=== PATIENT | female | born 1965 | race Caucasian/White ===

== ENCOUNTER 2016-12-08 16:55 | Emergency (ER) | payer MEDICAID, OTHER ==
[2016-12-08 17:14] VITALS: BP 122/69; PULSE 77; RESP 14; TEMP 97.9; O2SAT 93
--- NOTE | 2016-12-08 17:42 | EDPHY ---
H & P Time Seen by Provider: 12/08/16 16:59 HPI/ROS: CHIEF COMPLAINT: right index finger pain HISTORY OF PRESENT ILLNESS: 51-year-old female who is [id number] presents emergency department complaining of right distal index finger pain. Patient was getting out of shower and reports he jammed it on the towel rack. This happened last night. Patient reports pain and swelling, she denies previous injury to this finger, no other complaints. Past Medical/Surgical History: CHIEF COMPLAINT: [] HISTORY OF PRESENT ILLNESS: [ ] Physical Exam: GEN: Awake, alert, oriented, no acute distress RESP: nl resp effort MSK: right index finger held in flexion at DIP joint, mild swelling and ecchymosis, tenderness to palpation at the IP joint, cap refill less than 2 seconds, sensation intact to light touch SKIN: No break in skin Constitutional: Initial Vital Signs Temperature (C) 36.6 C 12/08/16 17:13 Heart Rate 77 12/08/16 17:13 Respiratory Rate 14 12/08/16 17:13 Blood Pressure 122/69 H 12/08/16 17:13 O2 Sat (%) 93 12/08/16 17:13 O2 Delivery Mode Room Air Allergies/Adverse Reactions: Sulfa (Sulfonamide Antibiotics) Allergy (Verified 12/08/16 17:12) Home Medications: Medication Instructions Recorded NK [No Known Home Meds] 12/08/16 MDM/Departure - MDM Diagnostics: Right index finger x-ray independently reviewed by me- Impression: Acute displaced avulsion fracture off the dorsal base of the distal phalanx resulting in minimal flexion at the DIP joint. Dictated By: Garrick Rivers MD - Depart Disposition: Home, Routine, Self-Care Clinical Impression: Mallet finger of right hand Avulsion fracture of distal phalanx of finger Qualifiers: Encounter type: initial encounter Fracture type: closed Qualified Code(s): S62.639A - Displaced fracture of distal phalanx of unspecified finger, initial encounter for closed fracture Condition: Good Instructions: Jammed Finger (ED), Finger Fracture (ED) Additional Instructions: Keep splint in place at all times for 6 weeks. Follow up with the hand doctor at 1st available appointment. Rest, ice, elevate, take 400 mg of ibuprofen every 8 hours with food for 3-5 days, take 500 mg of Tylenol every 8 hours for 3 -5 days, you can take these together. Return to the emergency department for any new symptoms or concerns, numbness to your finger, pain that is not controlled. Referrals: ELV[facility] GREENFIELD [Other] - As per Instructions Mathew Astorga MD [Medical Doctor] - As per Instructions (Hand doctor on-call)
[2016-12-08] MEDS ORDERED: IBUPROFEN 600 MG TAB PO ONE (17:43)
[2016-12-08] MEDS ORDERED: IBUPROFEN 200 MG TAB PO ONE (17:52)
== END 2016-12-08 17:58 | disposition home or self-care (01) ==
DX: S62.630A Displaced fracture of distal phalanx of right index finger, initial encounter for closed fracture (principal); M20.011 Mallet finger of right finger(s); W23.1XXA Caught, crushed, jammed, or pinched between stationary objects, initial encounter
CPT/HCPCS: L3925

== ENCOUNTER → 2017-09-06 | Outpatient (CLI) | payer MEDICAID | LOC: FIMAGING 13:34 | DX: R19.09 Other intra-abdominal and pelvic swelling, mass and lump (principal); R10.9 Unspecified abdominal pain ==

== ENCOUNTER 2017-12-27 15:30 | Emergency (ER) | payer MEDICAID ==
--- NOTE | 2017-12-27 16:01 | EDPHY ---
H & P Stated Complaint: M1 - Depression Source: Patient - Personal History LMP (Females 10-55): Unknown Current Tetanus/Diphtheria Vaccine: Unsure Current Tetanus Diphtheria and Acellular Pertussis (TDAP): Unsure - Medical/Surgical History Hx Asthma: No Hx Chronic Respiratory Disease: No Hx Diabetes: No Hx Cardiac Disease: No Hx Renal Disease: No Hx Cirrhosis: No Hx Alcoholism: No Hx HIV/AIDS: No Hx Splenectomy or Spleen Trauma: No Other PMH: Depression, GERD, Anxiety, Suicide attempts x 2 - Social History Smoking Status: Never smoked Time Seen by Provider: 12/27/17 15:43 HPI/ROS: CHIEF COMPLAINT: Suicidal ideation HISTORY OF PRESENT ILLNESS: The patient is referred to the emergency department by [facility] on an M1 psychiatric hold. The patient has a history of anxiety and PTSD. She also has a chronic digestive issue which she has had some depression surrounding. Several weeks ago the patient reportedly attempted suicide by overdosing on Valium and alcohol. This was unsuccessful. And the patient reports that this was a "wake-up call" and she no longer felt suicidal. The patient went to [facility] today seeking psychiatric care and was placed on a hold. The patient states that she does feel that she can contract for safety. She is somewhat upset about the fact she is on an M1 hold when she was simply looking for help for her depression and anxiety. The patient denies any recent drug or alcohol use. REVIEW OF SYSTEMS: A comprehensive 10 point review of systems is otherwise negative aside from elements mentioned in the history of present illness. (Milan Lerma) - Physical Exam Exam: General Appearance: Alert, no distress Eyes: Pupils equal and round no pallor or injection ENT, Mouth: Mucous membranes moist Respiratory: There are no retractions, lungs are clear to auscultation Cardiovascular: Regular rate and rhythm Gastrointestinal: Abdomen is soft and nontender, no masses, bowel sounds normal Neurological: A&O, normal motor function, normal sensory exam, normal cranial nerves Skin: Warm and dry, no rashes Musculoskeletal: Neck is supple nontender Extremities: symmetrical, full range of motion Psychiatric: Patient is oriented X 3, there is no agitation, endorses symptoms of depression and anxiety, remote suicidal ideation no longer suicidal (Milan Lerma) Constitutional: Initial Vital Signs Temperature (C) 36.6 C 12/27/17 15:39 Heart Rate 78 12/27/17 15:39 Respiratory Rate 18 12/27/17 15:39 Blood Pressure 190/113 H 12/27/17 15:39 O2 Sat (%) 95 12/27/17 15:39 O2 Delivery Mode Room Air Allergies/Adverse Reactions: Sulfa (Sulfonamide Antibiotics) Allergy (Verified 12/08/16 17:12) Home Medications: Medication Instructions Recorded Valium 5 MG (*) 10 mg HS 12/27/17 Zyprexa 10 mg 12/27/17 traZODone 100 mg HS 12/27/17 Medical Decision Making ED Course/Re-evaluation: The patient presents to the ED on an M1 psychiatric hold. She was evaluated by [facility] who feels the patient should be admitted for involuntary psychiatric hospitalization. They have not vacated her M1 psychiatric hold. The patient was medically cleared at our facility. (Milan Lerma) 1256: Patient has been accepted at [facility]. By , EMTALA filled out. Appropriate transfer will be set up. (Davi Beltran) Differential Diagnosis: Differential diagnosis considered includes subtle ideation, homicidal ideation, depression, psychosis, bipolar mood disorder (Milan Lerma) Other Provider: The patient will be turned over to Dr. Beltran at shift change pending psychiatric disposition (Milan Lerma) - Data Points Laboratory Results: Laboratory Results 12/27/17 16:00 12/27/17 16:00 12/27/17 12/27/17 12/27/17 17:00 16:00 16:00 WBC 7.54 10^3/uL 10^3/uL (3.80-9.50) RBC 4.70 10^6/uL 10^6/uL (4.18-5.33) Hgb 15.8 g/dL g/dL (12.6-16.3) Hct 43.5 % % (38.0-47.0) MCV 92.6 fL fL (81.5-99.8) MCH 33.6 pg pg (27.9-34.1) MCHC 36.3 g/dL g/dL (32.4-36.7) RDW 12.9 % % (11.5-15.2) Plt Count 290 10^3/uL 10^3/uL (150-400) MPV 9.8 fL fL (8.7-11.7) Neut % (Auto) 58.7 % % (39.3-74.2) Lymph % (Auto) 27.7 % % (15.0-45.0) [place] % (Auto) 10.5 % % (4.5-13.0) Eos % (Auto) 2.0 % % (0.6-7.6) Baso % (Auto) 0.8 % % (0.3-1.7) Nucleat RBC Rel Count 0.0 % % (0.0-0.2) Absolute Neuts (auto) 4.43 10^3/uL 10^3/uL (1.70-6.50) Absolute Lymphs (auto) 2.09 10^3/uL 10^3/uL (1.00-3.00) Absolute Monos (auto) 0.79 10^3/uL 10^3/uL (0.30-0.80) Absolute Eos (auto) 0.15 10^3/uL 10^3/uL (0.03-0.40) Absolute Basos (auto) 0.06 10^3/uL 10^3/uL (0.02-0.10) Absolute Nucleated RBC 0.00 10^3/uL 10^3/uL (0-0.01) Immature Gran % 0.3 % % (0.0-1.1) Immature Gran # 0.02 10^3/uL 10^3/uL (0.00-0.10) Sodium 142 mEq/L mEq/L (135-145) Potassium 3.8 mEq/L mEq/L (3.5-5.2) Chloride 104 mEq/L mEq/L (97-110) Carbon Dioxide 22 mEq/l mEq/l (22-31) Anion Gap 16 mEq/L mEq/L (8-16) BUN 17 mg/dL mg/dL (7-23) Creatinine 0.7 mg/dL mg/dL (0.6-1.0) Estimated GFR > 60 Glucose 142 mg/dL H mg/dL (70-100) Calcium 9.8 mg/dL mg/dL (8.5-10.4) Urine Opiates Screen NEGATIVE (NEGATIVE) Urine Barbiturates NEGATIVE (NEGATIVE) Ur Phencyclidine Scrn NEGATIVE (NEGATIVE) Ur Amphetamine Screen NEGATIVE (NEGATIVE) U Benzodiazepines Scrn NON-NEGATIVE H (NEGATIVE) Urine Cocaine Screen NEGATIVE (NEGATIVE) U Marijuana (THC) Screen NEGATIVE (NEGATIVE) Ethyl Alcohol < 10 mg/dL mg/dL (0-10) Medications Given: Trazodone HCl (Trazodone) 100 mg PO HS [facility] Stop: 06/26/18 20:59 Last Admin: 12/27/17 22:49 Dose: 100 mg Departure - Departure Disposition: Other Psych, Not Alis Clinical Impression: Suicidal ideation Condition: Good Referrals: NONE *PRIMARY CARE P,. [Primary Care Provider] - As per Instructions
[2017-12-27 16:05] LABS: PLATELET COUNT 290 10^3/uL (150-400)
[2017-12-27] MEDS ORDERED: traZODone 50 MG TAB ONE (22:43)
[2017-12-28 00:14] VITALS: PULSE 78; RESP 16
[2017-12-28 01:47] VITALS: BP 118/78; TEMP 98.2; O2SAT 97
[2017-12-28] MEDS ORDERED: traZODone 100 MG TAB PO SCH (21:00)
== END 2017-12-28 02:22 ==
LOC: EDUNIT#
DX: R45.851 Suicidal ideations (principal)
CPT/HCPCS: 80305; G0480